=== PATIENT | female | born 1955 | race Caucasian/White ===

== ENCOUNTER 2022-07-06 17:55 | Inpatient (IN) ==
[2022-07-06] MEDS ORDERED: IOPAMIDOL 100 ML BOTTLE IV ONE (17:56)
[2022-07-06] MEDS ORDERED: methylPREDNISolone SOD SUCC 125 MG/2 ML VIAL IV ONE (18:12)
[2022-07-06] MEDS ORDERED: ALBUTEROL SULFATE 2.5 MG/3 ML NEBULIZER NEB ONE (18:12)
--- NOTE | 2022-07-06 18:12 | Emergency Department Note ---
SOB HPI General Chief Complaint: Shortness of Breath/Dyspnea Stated Complaint: Shortness of breath Time Seen by Provider: 07/06/22 17:58 Source: patient Mode of arrival: wheelchair Limitations: no limitations History of Present Illness HPI Narrative: Narrative: The patient presents with 4 days of worsening nonproductive cough, shortness of breath, and a sharp pleuritic chest pain. Patient symptoms began shortly after having her pacemaker adjusted. Patient denies any presyncope. She denies any fever. She denies vomiting or diarrhea. She denies any increased leg swelling. Patient does have a history of COPD and CHF. Related Data Home Medications Medication Instructions Recorded Confirmed magnesium oxide 250 mg PO BID 01/11/16 05/30/22 potassium chloride 20 mEq 20 meq PO BIDCC 01/11/16 05/30/22 tablet,extended release(part/cryst) CPAP machine #1 ea 01/21/19 05/30/22 furosemide 80 mg tablet 80 mg PO QAM AND QHS 01/28/19 05/30/22 hydroxychloroquine 200 mg tablet 400 mg PO QDAY 01/28/19 05/30/22 (Plaquenil) verapamil 120 mg tablet,extended 120 mg PO QDAY 06/01/20 05/30/22 release verapamil 240 mg 24 hr 240 mg PO QDAY 06/01/20 05/30/22 capsule,extended release abatacept 125 mg/mL subcutaneous 125 mg subcut QWEEK 12/28/20 05/30/22 syringe (Orencia) Previous Rx's Medication Instructions Recorded lorazepam 1 mg tablet 1 mg PO BID PRN Anxiety #60 tabs 04/04/22 oxycodone 10 mg tablet 10 mg PO Q6H PRN pain #60 tabs 04/04/22 valacyclovir 500 mg tablet 500 mg PO BID #30 tabs 04/04/22 (Valtrex) amoxicillin 875 mg-potassium 1 tab PO BID #20 tabs 05/30/22 clavulanate 125 mg tablet fluconazole 150 mg tablet 150 mg PO .COMPLEX #2 tabs 05/30/22 (Diflucan) levothyroxine 150 mcg tablet 150 mcg PO QDAY #90 tabs 06/26/22 sertraline 100 mg tablet 100 mg PO QDAY #90 tabs 06/26/22 Allergies Allergy/AdvReac Type Severity Reaction Status Date / Time CARLO Inhibitors Allergy Unknown Unknown Verified 07/06/22 18:01 ciprofloxacin [From Cipro] Allergy Unknown Unknown Verified 07/06/22 18:01 codeine Allergy Unknown Unknown Verified 07/06/22 18:01 nitroglycerin Allergy Unknown Unknown Verified 07/06/22 18:01 Zolpidem Allergy Unknown Unknown Verified 07/06/22 18:01 seasonal allergies AdvReac Intermediate Other Uncoded 05/30/22 13:21 Review of Systems ROS ROS Narrative: Narrative: All systems ED: reviewed and negative except as stated. 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) Renal artery stenosis (Chronic) Thyroid nodule (Chronic ~2009) Fatigue (Chronic) History of adenomatous polyp of colon (Chronic) Asthma (Chronic) Primary idiopathic hypertrophic cardiomyopathy (Chronic) CPAP (continuous positive airway pressure) dependence (Chronic) Palpitations (Chronic) CHF (congestive heart failure) (Chronic) Allergic rhinitis (Chronic) Anxiety (Chronic) Bronchiectasis (Chronic) Gout (Chronic) Hyperlipidemia (Chronic) Insomnia (Chronic) Knee pain (Chronic) Pacemaker (Chronic) Plantar fasciitis (Chronic) Rheumatoid arthritis (Chronic) Sciatica (Chronic) COPD (chronic obstructive pulmonary disease) (Chronic) LINA on CPAP (Chronic) Pulmonary HTN (Chronic) Tobacco use (Chronic) DDD (degenerative disc disease), cervical (Chronic) Lumbar back pain (Chronic) Encounter for long-term (current) use of medications (Chronic) Unspecified vitamin D deficiency (Chronic) DDD (degenerative disc disease), lumbar (Chronic) Anemia, iron deficiency (Chronic) Shoulder impingement syndrome (Chronic) Decreased libido (Chronic) Seasonal allergic rhinitis (Chronic) Post menopausal syndrome (Chronic) Obesity (BMI 30.0-34.9) (Chronic) Nodule of left lung (Acute) Lumbar spondylosis (Acute) Uterine fibroid (Acute) Hypothyroidism (Acute) Bronchitis (Chronic) Renal calculi (Acute) Urge urinary incontinence (Chronic) Medical History Abnormal cytological findings in specimens from other organs, systems and tissues Allergic rhinitis Anemia, iron deficiency Anxiety Asthma Bilateral pulmonary infiltrates on chest x-ray Bronchiectasis Bronchitis Chest pain CHF (congestive heart failure) COPD (chronic obstructive pulmonary disease) Cough CPAP (continuous positive airway pressure) dependence DDD (degenerative disc disease), cervical DDD (degenerative disc disease), lumbar Decreased libido Depression Diverticulosis Dyspnea Easy bruising Encounter for long-term (current) use of medications Fatigue Foot pain Gout Hepatitis C History of adenomatous polyp of colon History of mammogram HPV in female Hyperlipidemia Hypertension Hyperthyroidism Hypothyroidism Insomnia Knee pain Left cervical radiculopathy Lumbar back pain Lumbar radiculopathy Lumbar spondylosis Mitral regurgitation Neck pain Obesity (BMI 30.0-34.9) LINA on CPAP Pacemaker Palpitations Plantar fasciitis Pneumonia Post menopausal syndrome Primary idiopathic hypertrophic cardiomyopathy Renal artery stenosis Renal calculi Rheumatoid arthritis Sciatica Seasonal allergic reaction Seasonal allergic rhinitis Shoulder impingement syndrome SOB (shortness of breath) on exertion Thyroid nodule (~2009) Tobacco use Unspecified vitamin D deficiency Urge urinary incontinence Uterine fibroid Vaginal Pap smear with ASC-US Wheezing Surgical History History of cardiac radiofrequency ablation History of cervical spinal surgery RFTC History of colon resection (~2001) History of foot surgery (~04/28/14) fusion History of pacemaker (~08/1998) replacement 11/15/10 History of permanent cardiac pacemaker placement History of placement of stent in anterior descending branch of left coronary artery (~05/06/05) History of stent insertion of renal artery (~2005) History of surgery 2 c-sections 1976 & 1978 per patient. History of surgery per patient 2 ablations 1997 & 1998. Hx laparoscopic cholecystectomy (~2004) S/P knee surgery 2009 per patient. Family History Mother Colon cancer Grandmother , 47 Malignant tumor of cervix Brother MVA (motor vehicle accident) brother age 28 years and another brother 42 years old in MVA per patient. Social History Smoking Status: Former smoker Alcohol Intake Frequency: does not drink Substance Use: does not use Exam Narrative Narrative: Narrative: General Limitations: no limitations General appearance: Present alert and in no apparent distress Head Head: Present atraumatic and normal inspection Eye Eye: Present normal appearance and EOMI ENT ENT: Present normal oropharynx and mucous membranes moist Neck Neck: Present normal inspection, full ROM and trachea midline; Absent mening ismus Chest Chest: Present normal inspection and symmetric chest wall rise Respiratory Respiratory: Present wheezes (Expiratory wheeze appreciated all lung hays); Absent respiratory distress Cardiovascular Cardiovascular: Present regular rate, normal rhythm and other (Bilateral radial 2+) Adbominal Abdominal: Present soft; Absent distention or tenderness Extremities Extremities: Present normal inspection and full ROM; Absent pedal edema or calf tenderness Back Back: Present full ROM Neurological Neurological: Present alert and oriented X3 Psychiatric Psychiatric: Present normal affect and normal mood Skin Skin: Present warm (WNL) and dry Course Vital Signs Vital signs: Vital Signs Temperature 97.2 F 07/06/22 17:58 Pulse Rate 72 07/06/22 17:58 Respiratory Rate 22 07/06/22 17:58 Blood Pressure 128/70 07/06/22 17:58 Pulse Oximetry (%) 89 L 07/06/22 17:58 Oxygen Delivery Method Room Air 07/06/22 17:58 Temperature 97.2 F 07/06/22 17:58 Pulse Rate 72 07/06/22 17:58 Respiratory Rate 22 07/06/22 17:58 Blood Pressure 128/70 07/06/22 17:58 Pulse Oximetry (%) 89 L 07/06/22 17:58 Oxygen Delivery Method Room Air 07/06/22 17:58 MDM MDM Narrative Medical decision making narrative: Narrative: The patient presents with cough, chest pain, and shortness of breath. Differential includes viral infection, pneumonia, CAD, CHF exacerbation, COPD exacerbation, or less likely, pulmonary embolism. Work-up will be geared towards this differential. Plan to give a dose of Solu-Medrol and albuterol for the wheezing. At change of shift, the patient is handed over to the oncoming physician who will follow up on any remaining studies and then make appropriate disposition. Lab Data Lab results reviewed: Yes I reviewed the patient's lab results. 07/06/22 18:14 Labs: Lab Results 07/06/22 07/06/22 07/06/22 Range/Units 18:14 18:15 18:17 WBC 11.7 H (4.5-11.0) K/mcL RBC 3.63 (3.59-5.38) M/mcL Hgb 9.9 L (11.2-15.7) g/dL Hct 31.1 L (34.1-44.9) % POC Hct 30.0 L (36-48) MCV 85.7 (80.0-100.0) fL MCH 27.3 (26.0-34.0) pg MCHC 31.8 (31.0-36.0) g/dL RDW 15.4 H (11.5-14.5) % Plt Count 169 (140-440) K/mcL MPV 12.3 (8.8-12.5) fL Immature Gran % (Auto) 0.7 H (0.0-0.5) % Neut % (Auto) 82.6 H (38.0-78.0) % Lymph % (Auto) 5.9 L (15.5-49.0) % [place] % (Auto) 10.4 (1.0-12.0) % Eos % (Auto) 0.1 (0.0-7.0) % Baso % (Auto) 0.3 (0.0-2.0) % Lymph # (Auto) 0.69 L (1.50-4.80) K/mcL [place] # (Auto) 1.21 H (0.10-0.90) K/mcL Eos # (Auto) 0.01 (0.00-0.70) K/mcL Baso # (Auto) 0.04 (0.00-0.30) K/mcL Immature Gran # 0.08 H (0.00-0.05) K/mcl Absolute Neutrophils 9.65 H (1.80-8.00) K/mcL POC Sodium 135 (133-145) POC Potassium 3.4 (3.3-5.1) POC Chloride 102 (96-108) POC Total CO2 23.0 (22-30) POC BUN 14 (6-20) POC Creatinine 0.9 (0.6-1.2) POC Glucose 125 H (70-105) POC WB Ioniz Calcium 1.04 L (1.16-1.32) POC Troponin I 0.07 (0.00-0.08) Radiology Data Radiology results reviewed: Yes I reviewed the patient's radiology results. Radiology results narrative: Per my interpretation of the portable chest x-ray, there appears to be fluid overloaded. There is also a concern for a possible infiltrate along the right heart border. EKG Data EKG #1: EKG attestation: Yes I reviewed and interpreted this EKG. and Yes There are no EKG findings of acute coronary syndrome EKG results narrative: Paced rhythm that is probably discordant, rate 72, QTc 517, ND 118 Discharge Plan Patient/Caregiver Discharge Instructions Pt seen by INFORMATION SYSTEMS AUDITOR/PA only: No Clinical Impression: CHF exacerbation Qualifiers: Heart failure type: unspecified Qualified Code(s): I50.9 - Heart failure, unspecified CAP (community acquired pneumonia) Qualifiers: Laterality: right Lung location: middle lobe of lung Qualified Code(s): J18.9 - Pneumonia, unspecified organism Patient Disposition: Still a Patient Follow up with: Asya Corbett ARNP [Primary Care Provider] - Prescriptions: No Action verapamil 120 mg tablet extended release 120 mg PO QDAY Rx Instructions: total 360mg every day . Dr. Navas levothyroxine 150 mcg tablet 150 mcg PO QDAY Qty: 90 1RF sertraline 100 mg tablet 100 mg PO QDAY Qty: 90 1RF hydroxychloroquine [Plaquenil] 200 mg tablet 400 mg PO QDAY verapamil 240 mg capsule,ext rel. pellets 24 hr 240 mg PO QDAY Rx Instructions: in addition to 120mg to equal 360 Dr. Navas [place] [place] Qty: 1 Rx Instructions: As directed Orencia 125 mg/mL syringe 125 mg subcut QWEEK Rx Instructions: Dr. Pérez valacyclovir [Valtrex] 500 mg tablet 500 mg PO BID Qty: 30 1RF oxycodone 10 mg tablet 10 mg PO Q6H PRN (Reason: pain) Qty: 60 0RF lorazepam 1 mg tablet 1 mg PO BID PRN (Reason: Anxiety) Qty: 60 0RF fluconazole [Diflucan] 150 mg tablet 150 mg PO .COMPLEX Qty: 2 0RF Rx Instructions: 150 mg PO now, one in 72 hours; as a single dose amoxicillin-pot clavulanate 875-125 mg tablet 1 tab PO BID Qty: 20 0RF potassium chloride 20 MEQ tablet 20 meq PO BIDCC magnesium oxide 250 MG tablet 250 mg PO BID furosemide 80 mg tablet 80 mg PO QAM AND QHS
[2022-07-06 18:21] LABS: POC Calcium, Ionized 1.04 (1.16-1.32); POC Creatinine 0.9 (0.6-1.2); POC Potassium 3.4 (3.3-5.1)
[2022-07-06 18:41] LABS: Basophils # (Auto) 0.04 K/mcL (0.00-0.30); Basophils % (Auto) 0.3 % (0.0-2.0); Eosinophils # (Auto) 0.01 K/mcL (0.00-0.70); Eosinophils % (Auto) 0.1 % (0.0-7.0); Hematocrit 31.1 % (34.1-44.9); Hemoglobin 9.9 g/dL (11.2-15.7); Lymphocytes # (Auto) 0.69 K/mcL (1.50-4.80); Lymphocytes % (Auto) 5.9 % (15.5-49.0); Mean Cell Volume 85.7 fL (80.0-100.0); Mean Corpuscular HGB Conc 31.8 g/dL (31.0-36.0); Mean Platelet Volume 12.3 fL (8.8-12.5); Monocytes # (Auto) 1.21 K/mcL (0.10-0.90); Monocytes % (Auto) 10.4 % (1.0-12.0); Neutrophils % (Auto) 82.6 % (38.0-78.0); Platelet Count 169 K/mcL (140-440); RBC 3.63 M/mcL (3.59-5.38); Red Cell Distribution Width 15.4 % (11.5-14.5); WBC 11.7 K/mcL (4.5-11.0)
[2022-07-06] MEDS ORDERED: cefTRIAXone 1 GM VIAL IV ONE (18:43)
[2022-07-06] MEDS ORDERED: AZITHROMYCIN 500 MG in DEXTROSE 5% IN WATER 250 ML IV ONE (18:43)
[2022-07-06] MEDS ORDERED: FUROSEMIDE 40 MG/4 ML VIAL IV ONE (18:44)
[2022-07-06 19:04] LABS: ALT/SGPT 21 U/L (<40); AST/SGOT 32 U/L (<32); Alkaline Phosphatase 64 U/L (39-117); Bilirubin,Direct 0.4 mg/dL (<0.3)
--- NOTE | 2022-07-06 20:02 | Cat Scan Report ---
HISTORY: Short of breath, elevated serum d-dimer, chest pain FINDINGS: Following injection of intravenous nonionic contrast the chest was imaged during the pulmonary arterial phase from above the thoracic inlet through the diaphragms. Sagittal, coronal and MIPS images were created. The radiation exposure was limited using dose reduction technology. FINDINGS: The pulmonary arteries are normal with no intraluminal filling defects. Main pulmonary artery is normal in caliber. The heart is mildly enlarged with mildly dilated left ventricle. There are calcified plaques in the coronary arteries. The cardiomegaly is a new finding since a prior CT done on 03/07/22. There are extensive patchy areas of alveolar consolidation throughout both lungs. There is significant thickening of the interlobular septa and there are small bilateral pleural effusions. No pericardial effusion is present. There are a couple reactive lymph nodes in the mediastinum. The thoracic spine has a kyphotic curvature. There is arthritis and degenerative disc disease throughout the entire thoracic spine and lower cervical spine. The patient has a pacemaker with leads in the right atrium and right ventricle. Power pack is in left pectoral region. IMPRESSION: Congestive heart failure with pulmonary edema No evidence of pulmonary emboli Dr. Victoria was called with the report Interpreted and Authenticated by: Fredi Nieto 07/06/22
--- NOTE | 2022-07-06 20:03 | XRay Report ---
History: Short of breath, cough FINDINGS: Portable AP erect image was obtained. There is severe pulmonary edema throughout both lungs. The base opacification is in the central portions. There is blunting of the right costophrenic sulcus due to a small pleural effusion. The heart is mildly enlarged. Dual-chamber pacemaker is well-positioned. The the congestive heart failure and pulmonary edema are new findings since 08/06/21. IMPRESSION: Congestive heart failure with severe pulmonary edema Interpreted and Authenticated by: Fredi Nieto 07/06/22
--- NOTE | 2022-07-06 20:38 | Emergency Department Note ---
ED Note Addendum Note Addendum: I received signout of this patient from my colleague at 1900. In brief this was a 67-year-old female who had shortness of breath with a history of CHF and COPD. She had significant wheezing when she arrived and was given albuterol and Solu- Medrol. Her pulse ox was 89% on arrival. Chest x-ray was reviewed and was suspicious for possible pneumonia so the patient was started on IV antibiotics. A D-dimer was obtained which was positive so a VQ scan was ordered that VQ scan eventually showed no pulmonary embolus. Patient's pulmonary angiogram showed congestive heart failure with pulmonary edema but no pulmonary embolus. D-dimer was 1.74. BNP was 2084. Lactic acid level was 0.9. She did not have SIRS criteria. Her troponin was 0.07 which was normal. Interestingly her hemoglobin was 9.9 compared to 12.4 just 5 months ago. When she originally arrived her pulse ox was 89%. She received a nebulized treatment and Solu-Medrol for her wheezing and her pulse ox was 93% when I went in the room. Though she was on 6 L by mask. I took her off the oxygen and her pulse ox dropped to 87% on room air. Her COVID test was negative as was her influenza A & B. I consulted Dr. Allen, our hospitalist for admission. 2034: He agreed to come down to the emergency department to evaluate her for admission. She was subsequently admitted to the hospital for further care.
[2022-07-06] MEDS ORDERED: ACETAMINOPHEN 325 MG TABLET PO ONE (20:49)
--- NOTE | 2022-07-06 20:59 | Internal Med History&Physical ---
HPI History of Present Illness Patient information: Note initiated : 07/06/22 at 8:49 pm Service Date, if different from initiated Date: [] Patient: Bryanna Malone a 67 y/o F admitted on for Shortness of breath. Chief Complaint: [] History of present illness: Ms. Malone is a 67 year old F Presents to ED with shortness of breath and cough. Patient states she is felt weak for about a week. She she was up in [place] with her who was getti ng heart surgery about a week ago. She also around that time had a gradient change for pacemaker. Shortly thereafter she started having problems with some increased shortness of breath. She developed a cough with mildly productive sputum. She also had fevers about 3 days ago. She has felt wheezy at times. She had increased lower extremity edema but she said it started to improve today. She is at a 8 pound weight gain as well. She had a headache. She has some chronic chest pains sharp in the center and right side which has been there for years, no change. In the ED she was worked up and found to have CHF. She was given Lasix. She was also given Solu-Medrol and nebulizers as there was initial concern for COPD flare. She says she did feel improvement with the nebulizers. proBNP 1999. EKG with VTroponin was negative. Ventricular paced. She had an echocardiogram done May 21 up in [place] which showed good EF at 61%. She also had moderate to severe mitral regurgitation. Patient was hypoxic on room air and required oxygen. Review of Systems: Pertinent positives as above. Denies headachechills/nausea/vomiting/r abdominal pain/diarrhea. Remaining 10 point review of system reviewed negative PHYSICAL EXAM General: Alert, Awake, No acute Distress, obese Eyes/N/T: EOMI, no scleral icterus, PERRL, MM Head/Neck: neck supple, full ROM, normocephalic atraumatic, JVD CV: RRR, 2/6SM, normal s1/s2 Pulm: rales/rhonchi b/l, no wheezing no respiratory distress Abd: soft, nontender, +BS x4 Ext: no clubbing/cyanosis, trace b/l LE , nontender Neuro: Alert, no focal deficits, moves all extremities, CN 2-12 grossly intact, sensations intact b/l upper/lower Psychiatric: Skin: warm/dry, normal color PFSH PFSH All Active Problems (Updated 07/06/22 @ 18:46 by Ronak Amor MD) CHF exacerbation (Acute) CAP (community acquired pneumonia) (Acute) Hypertension (Chronic) Mitral regurgitation (Chronic) Diverticulosis (Chronic) Depression (Chronic) 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) Renal artery stenosis (Chronic) Thyroid nodule (Chronic ~2010) Fatigue (Chronic) History of adenomatous polyp of colon (Chronic) Asthma (Chronic) Primary idiopathic hypertrophic cardiomyopathy (Chronic) CPAP (continuous positive airway pressure) dependence (Chronic) Palpitations (Chronic) CHF (congestive heart failure) (Chronic) Allergic rhinitis (Chronic) Anxiety (Chronic) Bronchiectasis (Chronic) Gout (Chronic) Hyperlipidemia (Chronic) Insomnia (Chronic) Knee pain (Chronic) Pacemaker (Chronic) Plantar fasciitis (Chronic) Rheumatoid arthritis (Chronic) Sciatica (Chronic) COPD (chronic obstructive pulmonary disease) (Chronic) LINA on CPAP (Chronic) Pulmonary HTN (Chronic) Tobacco use (Chronic) DDD (degenerative disc disease), cervical (Chronic) Lumbar back pain (Chronic) Encounter for long-term (current) use of medications (Chronic) Unspecified vitamin D deficiency (Chronic) DDD (degenerative disc disease), lumbar (Chronic) Anemia, iron deficiency (Chronic) Shoulder impingement syndrome (Chronic) Decreased libido (Chronic) Seasonal allergic rhinitis (Chronic) Post menopausal syndrome (Chronic) Obesity (BMI 30.0-34.9) (Chronic) Nodule of left lung (Acute) Lumbar spondylosis (Acute) Uterine fibroid (Acute) Hypothyroidism (Acute) Bronchitis (Chronic) Renal calculi (Acute) Urge urinary incontinence (Chronic) Medical History Abnormal cytological findings in specimens from other organs, systems and tissues Allergic rhinitis Anemia, iron deficiency Anxiety Asthma Bilateral pulmonary infiltrates on chest x-ray Bronchiectasis Bronchitis Chest pain CHF (congestive heart failure) COPD (chronic obstructive pulmonary disease) Cough CPAP (continuous positive airway pressure) dependence DDD (degenerative disc disease), cervical DDD (degenerative disc disease), lumbar Decreased libido Depression Diverticulosis Dyspnea Easy bruising Encounter for long-term (current) use of medications Fatigue Foot pain Gout Hepatitis C History of adenomatous polyp of colon History of mammogram HPV in female Hyperlipidemia Hypertension Hyperthyroidism Hypothyroidism Insomnia Knee pain Left cervical radiculopathy Lumbar back pain Lumbar radiculopathy Lumbar spondylosis Mitral regurgitation Neck pain Obesity (BMI 30.0-34.9) LINA on CPAP Pacemaker Palpitations Plantar fasciitis Pneumonia Post menopausal syndrome Primary idiopathic hypertrophic cardiomyopathy Renal artery stenosis Renal calculi Rheumatoid arthritis Sciatica Seasonal allergic reaction Seasonal allergic rhinitis Shoulder impingement syndrome SOB (shortness of breath) on exertion Thyroid nodule (~2009) Tobacco use Unspecified vitamin D deficiency Urge urinary incontinence Uterine fibroid Vaginal Pap smear with ASC-US Wheezing Surgical History History of cardiac radiofrequency ablation History of cervical spinal surgery RFTC History of colon resection (~2001) History of foot surgery (~04/28/14) fusion History of pacemaker (~08/1998) replacement 11/15/10 History of permanent cardiac pacemaker placement History of placement of stent in anterior descending branch of left coronary artery (~05/06/05) History of stent insertion of renal artery (~2005) History of surgery 2 c-sections 1976 & 1978 per patient. History of surgery per patient 2 ablations 1997 & 1998. Hx laparoscopic cholecystectomy (~2004) S/P knee surgery 2009 per patient. Family History Mother Colon cancer Grandmother , 47 Malignant tumor of cervix Brother MVA (motor vehicle accident) brother age 28 years and another brother 42 years old in MVA per patient. Social History household members: spouse marital status: occupational status: disabled other: Son-18 killed in MVA, 04/29/12, Remarried 2013 to Rubens smoking status: Former smoker quit date: 01/27/19 alcohol intake frequency: does not drink substance use type: does not use MEDS/ALLERGIES Home Medications and Allergies Home Medications Medication Instructions Recorded Confirmed Type magnesium oxide 250 mg PO BID 01/11/16 05/30/22 History potassium chloride 20 mEq 20 meq PO BIDCC 01/11/16 05/30/22 History tablet,extended release(part/cryst) CPAP machine #1 ea 01/21/19 05/30/22 History furosemide 80 mg tablet 80 mg PO QAM AND QHS 01/28/19 05/30/22 History hydroxychloroquine 200 mg tablet 400 mg PO QDAY 01/28/19 05/30/22 History (Plaquenil) verapamil 120 mg tablet,extended 120 mg PO QDAY 06/01/20 05/30/22 History release verapamil 240 mg 24 hr 240 mg PO QDAY 06/01/20 05/30/22 History capsule,extended release abatacept 125 mg/mL subcutaneous 125 mg subcut QWEEK 12/28/20 05/30/22 History syringe (Orencia) lorazepam 1 mg tablet 1 mg PO BID PRN Anxiety #60 tabs 04/04/22 05/30/22 Rx oxycodone 10 mg tablet 10 mg PO Q6H PRN pain #60 tabs 04/04/22 05/30/22 Rx valacyclovir 500 mg tablet 500 mg PO BID #30 tabs 04/04/22 05/30/22 Rx (Valtrex) amoxicillin 875 mg-potassium 1 tab PO BID #20 tabs 05/30/22 05/30/22 Rx clavulanate 125 mg tablet fluconazole 150 mg tablet 150 mg PO .COMPLEX #2 tabs 05/30/22 05/30/22 Rx (Diflucan) levothyroxine 150 mcg tablet 150 mcg PO QDAY #90 tabs 06/26/22 Rx sertraline 100 mg tablet 100 mg PO QDAY #90 tabs 06/26/22 Rx Allergies Allergy/AdvReac Type Severity Reaction Status Date / Time CARLO Inhibitors Allergy Unknown Unknown Verified 07/06/22 18:01 ciprofloxacin [From Cipro] Allergy Unknown Unknown Verified 07/06/22 18:01 codeine Allergy Unknown Unknown Verified 07/06/22 18:01 nitroglycerin Allergy Unknown Unknown Verified 07/06/22 18:01 Zolpidem Allergy Unknown Unknown Verified 07/06/22 18:01 seasonal allergies AdvReac Intermediate Other Uncoded 05/30/22 13:21 EXAM Constitutional Vitals: Temp Pulse Resp BP Pulse Ox O2 Del Method 97.2 F 72 20 105/90 93 Room Air 07/06/22 17:58 07/06/22 20:32 07/06/22 20:32 07/06/22 20:32 07/06/22 20:32 07/06/22 17:58 DATA Data Completed and Pending Labs: Labs from last 24 hours 07/06/22 07/06/22 07/06/22 18:54 18:17 18:15 WBC RBC Hgb Hct POC Hct 30.0 L MCV MCH MCHC RDW Plt Count MPV Immature Gran % (Auto) Neut % (Auto) Lymph % (Auto) [place] % (Auto) Eos % (Auto) Baso % (Auto) Lymph # (Auto) [place] # (Auto) Eos # (Auto) Baso # (Auto) Immature Gran # Absolute Neutrophils D-Dimer POC VBG pH 7.47 H POC VBG pCO2 at Temp 29.1 L POC VBG pO2 45 H POC VBG HCO3 21.2 L POC VBG Total CO2 22.0 L POC Venous O2 Sat 85.0 H POC VBG Base Excess -2.0 VBG Lactic Acid 0.9 POC Sodium 135 POC Potassium 3.4 POC Chloride 102 POC Total CO2 23.0 POC BUN 14 POC Creatinine 0.9 POC Glucose 125 H POC WB Ioniz Calcium 1.04 L Total Bilirubin Direct Bilirubin AST ALT Alkaline Phosphatase NT-Pro-B Natriuret Pep Total Protein Albumin Globulin Procalcitonin TSH POC Troponin I 0.07 07/06/22 07/06/22 07/06/22 18:14 18:14 18:14 WBC RBC Hgb Hct POC Hct MCV MCH MCHC RDW Plt Count MPV Immature Gran % (Auto) Neut % (Auto) Lymph % (Auto) [place] % (Auto) Eos % (Auto) Baso % (Auto) Lymph # (Auto) [place] # (Auto) Eos # (Auto) Baso # (Auto) Immature Gran # Absolute Neutrophils D-Dimer POC VBG pH POC VBG pCO2 at Temp POC VBG pO2 POC VBG HCO3 POC VBG Total CO2 POC Venous O2 Sat POC VBG Base Excess VBG Lactic Acid POC Sodium POC Potassium POC Chloride POC Total CO2 POC BUN POC Creatinine POC Glucose POC WB Ioniz Calcium Total Bilirubin 1.0 Direct Bilirubin 0.4 H AST 32 H ALT 21 Alkaline Phosphatase 64 NT-Pro-B Natriuret Pep 2084.0 H Total Protein 7.0 Albumin 4.0 Globulin 3.0 Procalcitonin Pending TSH Pending POC Troponin I 07/06/22 07/06/22 18:14 18:14 WBC 11.7 H RBC 3.63 Hgb 9.9 L Hct 31.1 L POC Hct MCV 85.7 MCH 27.3 MCHC 31.8 RDW 15.4 H Plt Count 169 MPV 12.3 Immature Gran % (Auto) 0.7 H Neut % (Auto) 82.6 H Lymph % (Auto) 5.9 L [place] % (Auto) 10.4 Eos % (Auto) 0.1 Baso % (Auto) 0.3 Lymph # (Auto) 0.69 L [place] # (Auto) 1.21 H Eos # (Auto) 0.01 Baso # (Auto) 0.04 Immature Gran # 0.08 H Absolute Neutrophils 9.65 H D-Dimer 1.74 H POC VBG pH POC VBG pCO2 at Temp POC VBG pO2 POC VBG HCO3 POC VBG Total CO2 POC Venous O2 Sat POC VBG Base Excess VBG Lactic Acid POC Sodium POC Potassium POC Chloride POC Total CO2 POC BUN POC Creatinine POC Glucose POC WB Ioniz Calcium Total Bilirubin Direct Bilirubin AST ALT Alkaline Phosphatase NT-Pro-B Natriuret Pep Total Protein Albumin Globulin Procalcitonin TSH POC Troponin I A/P Narrative A/P Narrative: A: *Acute on chronic diastolic CHF w/pulmonary edema: -last echo 05/21/2022 *mod-Severe MR: *Acute hypoxic respiratory failure: 2/2 above *?COPD(not on home O2): with possible viral illness *possible viral illness: triggering above *LINA w/cpap: *HTN: *Obesity: BMI 34 *Chronic back pain: *Depression/anxiety: *Rheumatoid arthritis: *Hypothyroidism: * P: -iv lasix -Monitor UOP/renal function/fluid balance -montor renal fxn -Monitor electrolytes trend and replace -Check TSH -check pct/rvp - -Continue home CPAP -nebs, IS/Acapella -Home medication reconciliation -PT/OT -f/u with cardiology -ppx: Lovenox Time Spent With Patient Time: Total time spent is greater than 50% in coordination of care (as documented) at patient's floor/unit and/or counseling patient: Initial: Total time with patient: 75 - 90 minutes
[2022-07-06 21:13] LABS: Thyroid Stimulating Hormone 0.31 uIU/mL (0.27-5.01)
[2022-07-06] MEDS ORDERED: MAGNESIUM SULFATE 2 GM/50 ML BAG IV PRN (22:02)
[2022-07-06] MEDS ORDERED: FUROSEMIDE 20 MG/2 ML VIAL IV ONE (22:02)
[2022-07-06] MEDS ORDERED: ONDANSETRON 4 MG/2 ML VIAL IV PRN (22:02)
[2022-07-06] MEDS ORDERED: SENNOSIDES 1 TABLET PO PRN (22:02)
[2022-07-06] MEDS ORDERED: ACETAMINOPHEN 325 MG TABLET PO PRN (22:02)
[2022-07-06] MEDS ORDERED: POLYETHYLENE GLYCOL 3350 17 GM PACKET PO PRN (22:02)
[2022-07-06] MEDS ORDERED: POTASSIUM CHLORIDE 40 MEQ in DEXTROSE 5% IN WATER 500 ML IV PRN (22:02)
[2022-07-06] MEDS ORDERED: POTASSIUM CHLORIDE 20 MEQ TABLET PO PRN ×2 (22:02)
[2022-07-06] MEDS ORDERED: REMDESIVIR 200 MG in 0.9 % SODIUM CHLORIDE 250 ML IV ONE (22:45)
[2022-07-06] MEDS: 0.9 % SODIUM CHLORIDE 10 ML SYRINGE IV SCH (23:05)
[2022-07-06] MEDS ORDERED: DEXAMETHASONE 4 MG TABLET PO ONE (23:19)
[2022-07-06] MEDS: DEXAMETHASONE 4 MG TABLET PO SCH (23:44)
[2022-07-07] MEDS: 0.9 % SODIUM CHLORIDE 10 ML SYRINGE IV SCH ×3 (05:07→21:30)
[2022-07-07 06:26] LABS: Basophils # (Auto) 0.01 K/mcL (0.00-0.30); Basophils % (Auto) 0.1 % (0.0-2.0); Eosinophils # (Auto) 0 K/mcL (0.00-0.70); Eosinophils % (Auto) 0 % (0.0-7.0); Hematocrit 32.4 % (34.1-44.9); Hemoglobin 10.2 g/dL (11.2-15.7); Lymphocytes # (Auto) 0.42 K/mcL (1.50-4.80); Mean Cell Volume 86.6 fL (80.0-100.0); Mean Corpuscular HGB Conc 31.5 g/dL (31.0-36.0); Mean Platelet Volume 11.9 fL (8.8-12.5); Monocytes # (Auto) 0.36 K/mcL (0.10-0.90); Monocytes % (Auto) 4.3 % (1.0-12.0); Neutrophils % (Auto) 89.9 % (38.0-78.0); Platelet Count 150 K/mcL (140-440); RBC 3.74 M/mcL (3.59-5.38); Red Cell Distribution Width 15.4 % (11.5-14.5); WBC 8.4 K/mcL (4.5-11.0)
--- NOTE | 2022-07-07 07:49 | Internal Med Progress Note ---
SUBJECTIVE Subjective Patient information: Note initiated : 07/07/22 at 7:44 am Service Date, if different from initiated Date: [] Patient: Bryanna Malone a 67 y/o F admitted on 07/06/22 for Shortness of breath. Chief Complaint: [] Interval history: History of present illness: Ms. Malone is a 67 year old F Presents to ED with shortness of breath and cough. Patient states she is felt weak for about a week. She she was up in [place] with her who was getting heart surgery about a week ago. She also around that time had a gradient change for pacemaker. Shortly thereafter she started having problems with some increased shortness of breath. She developed a cough with mildly productive sputum. She also had fevers about 3 days ago. She has felt wheezy at times. She had increased lower extremity edema but she said it started to improve today. She is at a 8 pound weight gain as well. She had a headache. She has some chronic chest pains sharp in the center and right side which has been there for years, no change. In the ED she was worked up and found to have CHF. She was given Lasix. She was also given Solu-Medrol and nebulizers as there was initial concern for COPD flare. She says she did feel improvement with the nebulizers. proBNP 1999. EKG with VTroponin was negative. Ventricular paced. She had an echocardiogram done May 21 up in [place] which showed good EF at 61%. She also had moderate to severe mitral regurgitation. Patient was hypoxic on room air and required oxygen. 07/07 patient feeling little better today. Shortness of breath present but better, coughing improving. On room air while awake. Have not ambulated on room air yet. COVID-positive possibly contributing to the presentation. CRP elevated 11. Patient started on treatment yesterday.Leukocytosis resolved Review of Systems: Denies headachechills/nausea/vomiting/r abdominal pain/diarrhea.as above PHYSICAL EXAM General: Alert, Awake, No acute Distress, obese Eyes/N/T: EOMI, no scleral icterus, Head/Neck: neck supple, full ROM, CV: RRR, 2/6SM, Pulm: rales/rhonchi b/l much improved now minimally at bases, no wheezing no respiratory distress Abd: soft, nontender, +BS x4 Ext: no clubbing/cyanosis, trace b/l LE , nontender Neuro: Alert, no focal deficits, moves all extremities,sensations intact b/l upper/lower Psychiatric: Skin: warm/dry, normal color Constitutional Vitals: Vital Signs Temp Pulse Resp BP Pulse Ox O2 Del Method O2 Flow Rate 96.9 F L 63 21 141/67 97 Room Air 4 07/07/22 04:01 07/07/22 05:58 07/07/22 05:58 07/07/22 05:58 07/07/22 05:58 07/07/22 05:58 07/07/22 05:54 Period Temp Pulse Resp BP Sys/Gunderson Pulse Ox O2 Del Method O2 Flow Rate Last 24 Hr 96.4 F-98.6 F 59-72 18-30 104-141/55-90 89-99 CPAP-Room Air 3-6 Intake and Output 07/06/22 07/07/22 07/07/22 19:59 03:59 11:59 Intake Total 980 Output Total 300 350 Balance 680 -350 Weight 83.915 kg 89.947 kg Intake & Output: Intake & Output 07/06/22 07/07/22 07/07/22 19:59 03:59 11:59 Intake Total 980 Output Total 300 350 Balance 680 -350 Weight 83.915 kg 89.947 kg Intake: IV 500 Zithromax 500 mg In Dextrose 5% 250 in Water 250 ml @ 250 mls/hr IV ONCE ONE Rx#:[id number] Veklury 200 mg In Sodium 250 Chloride 0.9% 250 ml @ 500 mls/ hr IV ONCE ONE Rx#:[id number] Oral 480 Output: Void Amount 300 350 Other: Meal Nourishment/Supplement Percent of Meal Consumed 100% Nourishment/Supplement name [place]ce Urine Appearance Clear Clear Urine Color Dark Yellow Yellow Stool Size Moderate Stool Color Brown Stool Consistency Normal for Patient Soft OBJ DATA Labs 07/07/22 05:35 Labs: Abnormal Lab Results 07/07/22 07/06/22 07/06/22 05:35 18:54 18:17 WBC Hgb 10.2 L Hct 32.4 L POC Hct 30.0 L RDW 15.4 H Immature Gran % (Auto) 0.7 H Neut % (Auto) 89.9 H Lymph % (Auto) 5.0 L Lymph # (Auto) 0.42 L [place] # (Auto) Immature Gran # 0.06 H Absolute Neutrophils D-Dimer POC VBG pH 7.47 H POC VBG pCO2 at Temp 29.1 L POC VBG pO2 45 H POC VBG HCO3 21.2 L POC VBG Total CO2 22.0 L POC Venous O2 Sat 85.0 H POC Glucose 125 H POC WB Ioniz Calcium 1.04 L Direct Bilirubin AST NT-Pro-B Natriuret Pep 07/06/22 07/06/22 07/06/22 18:14 18:14 18:14 WBC 11.7 H Hgb 9.9 L Hct 31.1 L POC Hct RDW 15.4 H Immature Gran % (Auto) 0.7 H Neut % (Auto) 82.6 H Lymph % (Auto) 5.9 L Lymph # (Auto) 0.69 L [place] # (Auto) 1.21 H Immature Gran # 0.08 H Absolute Neutrophils 9.65 H D-Dimer 1.74 H POC VBG pH POC VBG pCO2 at Temp POC VBG pO2 POC VBG HCO3 POC VBG Total CO2 POC Venous O2 Sat POC Glucose POC WB Ioniz Calcium Direct Bilirubin 0.4 H AST 32 H NT-Pro-B Natriuret Pep 2084.0 H Meds: Medications Acetaminophen (Acetaminophen 325 Mg Tablet) 650 mg PO Q6HP PRN; Protocol PRN Reason: Per Pain Protocol/Fever > 101 Albuterol/Ipratropium (Ipratropium/Albuterol 3 Ml Ampul.Neb) 3 ml NEB Q4HP PRN PRN Reason: Shortness Of Breath Budesonide (Budesonide 0.5 Mg/2 Ml Ampul.Neb) 0.5 mg NEB Q12 PENDING SALE TO [facility] Dexamethasone (Dexamethasone 4 Mg Tablet) 6 mg PO DAILY PENDING SALE TO [facility] Last Admin: 07/06/22 23:44 Dose: 6 mg Docusate Sodium (Docusate Sodium 100 Mg Capsule) 100 mg PO BID PENDING SALE TO [facility] Enoxaparin Sodium (Enoxaparin 40 Mg/0.4 Ml Syringe) 40 mg SQ DAILY PENDING SALE TO [facility] Furosemide (Furosemide 40 Mg/4 Ml Vial) 40 mg IV Q8 PENDING SALE TO [facility] Potassium Chloride 40 meq/ (Dextrose) 520 mls @ 130 mls/hr IV UD PRN PRN Reason: Potassium < 3 Magnesium Sulfate (Magnesium Sulfate) 2 gm in 50 mls @ 50 mls/hr IV UD PRN PRN Reason: Magnesium </= 1.6 REMDESIVIR 100 mg/ Sodium (Chloride) 250 mls @ 500 mls/hr IV Q24H PENDING SALE TO [facility] Stop: 07/10/22 15:29 Ondansetron HCl (Ondansetron 4 Mg/2 Ml Vial) 4 mg IV Q4HP PRN PRN Reason: Nausea And Vomiting Polyethylene Glycol (Polyethylene Glycol 3350 17 Gm Packet) 17 gm PO DAILYP PRN PRN Reason: Constipation Potassium Chloride (Potassium Chloride 20 Meq Tablet) 40 meq PO UD PRN PRN Reason: Potssium is 3-3.5 Last Admin: 07/06/22 23:05 Dose: 40 meq Potassium Chloride (Potassium Chloride 20 Meq Tablet) 40 meq PO UD PRN PRN Reason: Potassium < 3 Senna (Sennosides 1 Tablet) 2 tab PO DAILYP PRN PRN Reason: Constipation Sodium Chloride (0.9 % Sodium Chloride 10 Ml Syringe) 10 ml IV Q8 PENDING SALE TO [facility] Last Admin: 07/07/22 05:07 Dose: 10 ml A/P Narrative A/P Narrative: A: *Acute on chronic diastolic CHF w/pulmonary edema: -last echo 05/21/2022 *mod-Severe MR: *Covid (+),?pna: -leukocytosis resolve. rvp neg *Acute hypoxic respiratory failure: 2/2 above -now on room air while at rest, have not amulated on room air *AECOPD(not on home O2): 2/2 covid *LINA w/cpap: *HTN: *Obesity: BMI 34 *Chronic back pain: *Depression/anxiety: *Rheumatoid arthritis: *Hypothyroidism: tsh wnl * P: -iv lasix tid -Monitor UOP/renal function/fluid balance -montor renal fxn -Monitor electrolytes trend and replace -Rem/Dex -Check inflammatory markers -Continue home CPAP -nebs, IS/Acapella -Home medication reconciliation -PT/OT -f/u with cardiology -ppx: Lovenox Time Spent With Patient Time: Total time spent is greater than 50% in coordination of care (as documented) at patient's floor/unit and/or counseling patient: Subsequent: Total time with patient: 50 - 65 Minutes QUALITY VTE Deep Vein Thrombosis/Pulmonary Embolism Present on Admission: No
[2022-07-07 08:10] LABS: ALT/SGPT 19 U/L (<40); AST/SGOT 27 U/L (<32); Albumin 3.8 gm/dL (3.2-5.2); Albumin/Globulin Ratio 1.2 (1.0-2.3); Alkaline Phosphatase 64 U/L (39-117); Bilirubin,Direct < 0.2 mg/dL (0-0.3); Bilirubin,Total 0.5 mg/dL (0.1-1.0); Blood Urea Nitrogen 11 mg/dL (8-23); Calcium 9.3 mg/dL (8.6-10.4); Carbon Dioxide 24 mmol/L (22-30); Chloride 105 mmol/L (96-108); Globulin 3.2 gm/dL (2.2-3.7); Glomerular Filtration Rate 90; Glucose 155 mg/dL (70-105); Lactate Dehydrogenase 401 U/L (135-225); Phosphorous 2.9 mg/dL (2.5-4.5); Triglycerides 73 mg/dL (<150); Uric Acid 8.5 mg/dL (2.5-8.0)
[2022-07-07] MEDS: ENOXAPARIN 40 MG/0.4 ML SYRINGE SQ SCH (08:38)
[2022-07-07] MEDS: DEXAMETHASONE 4 MG TABLET PO SCH (08:39)
[2022-07-07] MEDS: DOCUSATE SODIUM 100 MG CAPSULE PO SCH ×2 (08:39→19:13)
[2022-07-07] MEDS: FUROSEMIDE 40 MG/4 ML VIAL IV SCH ×3 (08:40→21:30)
[2022-07-07] MEDS: BUDESONIDE 0.5 MG/2 ML AMPUL.NEB NEB SCH ×2 (09:03→20:08)
[2022-07-07] MEDS: IPRATROPIUM/ALBUTEROL 3 ML AMPUL.NEB NEB PRN (09:03)
--- NOTE | 2022-07-07 10:50 | EKG ---
[facility] Test Date: 2022-07-06 Pat Name: Bryanna Malone Department: ED Room: Gender: Female Legal Arbitrator: ERNA : 1955 Requested By: Ronak Amor Order Number: [id number] Reading MD: Dao Cedeno Measurements Intervals [place] Rate: 72 P: 91 ME: 118 QRS: -55 QRSD: 181 T: 125 QT: 472 QTc: 517 Interpretive Statements Atrial-sensed ventricular-paced rhythm No further analysis attempted due to paced rhythm Electronically Signed On 07-07-2022 10:49:53 PDT by Dao Cedeno /store/M0/[id number]
--- NOTE | 2022-07-07 10:53 | Discharge Summary ---
Discharge Provider Provider IMPORTANT FOLLOW-UP INFORMATION FOR PCP: Patient information: Note initiated : 07/07/22 at 10:51 am Service Date, if different from initiated Date: [] Patient: Bryanna Malone a 67 y/o F admitted on 07/06/22 for Shortness of breath. Chief Complaint: [] Date of admission: 07/06/22 22:00 Discharge date: 07/08/22 Primary care physician: HITESH Del Cid Consults: 07/06/22 Consult to Physician [CONS] Stat Comment: E2 Admit. CHF with Pulm edema and P. ox 86% Consulting Provider: Lam Allen Reason For Exam: Physician to Consult COURSE Hospital Course Hospital course: History of present illness: Ms. Malone is a 67 year old F Presents to ED with shortness of breath and cough. Patient states she is felt weak for about a week. She she was up in [place] with her who was getting heart surgery about a week ago. She also around that time had a gradient change for pacemaker. Shortly thereafter she started having problems with some increased shortness of breath. She developed a cough with mildly productive sputum. She also had fevers about 3 days ago. She has felt wheezy at times. She had increased lower extremity edema but she said it started to improve today. She is at a 8 pound weight gain as well. She had a headache. She has some chronic chest pains sharp in the center and right side which has been there for years, no change. In the ED she was worked up and found to have CHF. She was given Lasix. She was also given Solu-Medrol and nebulizers as there was initial concern for COPD flare. She says she did feel improvement with the nebulizers. proBNP 1999. EKG with VTroponin was negative. Ventricular paced. She had an echocardiogram done May 21 up in [place] which showed good EF at 61%. She also had moderate to severe mitral regurgitation. Patient was hypoxic on room air and required oxygen. 07/07 patient feeling little better today. Shortness of breath present but better, coughing improving. On room air while awake. Have not ambulated on room air yet. COVID-positive possibly contributing to the presentation. CRP elevated 11. Patient started on treatment yesterday.Leukocytosis resolved 07/08 Continues to feel better. Ambulating around the room on room air. Decent urine output yesterday. CRP slightly improved. Patient hoping to discharge today. A: *Acute on chronic diastolic CHF w/pulmonary edema: -last echo 05/21/2022 *mod-Severe MR: *Covid (+),?pna: *Acute hypoxic respiratory failure: 2/2 above *AECOPD(not on home O2): 2/2 covid *LINA w/cpap: *HTN: *Obesity: BMI 34 *Chronic back pain: *Depression/anxiety: *Rheumatoid arthritis: *Hypothyroidism: tsh wnl Discharge diagnosis: Acute on chronic diastolic heart failure with pulmonary edema acute hypoxic Secondary discharge diagnosis: Acute hypoxic respite failure moderate to severe MR COVID infection with possible pneumonia COPD obstructive sleep apnea pretension obesity chronic pain depression anxiety rheumatoid arthritis hypothyroidism Time Spent with Patient Time attestation: Total time spent providing and/or coordinating discharge services: Time spent: Greater than 30 minutes EXAM Constitutional Vitals: Temp Pulse Resp BP Pulse Ox O2 Del Method O2 Flow Rate 97.4 F 73 18 122/77 91 Room Air 0.5 07/07/22 08:00 07/07/22 10:00 07/07/22 10:00 07/07/22 10:00 07/07/22 10:00 07/07/22 10:00 07/07/22 09:00 Discharge Data Data Completed and Pending Labs on day of discharge: Labs from last 24 hours 07/07/22 07/07/22 07/07/22 05:35 05:35 05:35 WBC 8.4 RBC 3.74 Hgb 10.2 L Hct 32.4 L POC Hct MCV 86.6 MCH 27.3 MCHC 31.5 RDW 15.4 H Plt Count 150 MPV 11.9 Immature Gran % (Auto) 0.7 H Neut % (Auto) 89.9 H Lymph % (Auto) 5.0 L [place] % (Auto) 4.3 Eos % (Auto) 0 Baso % (Auto) 0.1 Lymph # (Auto) 0.42 L [place] # (Auto) 0.36 Eos # (Auto) 0 Baso # (Auto) 0.01 Immature Gran # 0.06 H Absolute Neutrophils 7.58 D-Dimer POC VBG pH POC VBG pCO2 at Temp POC VBG pO2 POC VBG HCO3 POC VBG Total CO2 POC Venous O2 Sat POC VBG Base Excess VBG Lactic Acid POC Sodium Sodium 141 POC Potassium Potassium 3.8 POC Chloride Chloride 105 Carbon Dioxide 24 POC Total CO2 Anion Gap 12.0 POC BUN BUN 11 Creatinine 0.7 POC Creatinine GFR Calculation 90 Glucose 155 H POC Glucose Uric Acid 8.5 H Calcium 9.3 POC WB Ioniz Calcium Phosphorus 2.9 Magnesium 2.3 Total Bilirubin 0.5 Direct Bilirubin < 0.2 GGT 26 AST 27 ALT 19 Alkaline Phosphatase 64 Lactate Dehydrogenase 401 H C-Reactive Protein 10.80 H NT-Pro-B Natriuret Pep Total Protein 7.0 Albumin 3.8 Globulin 3.2 Albumin/Globulin Ratio 1.2 Triglycerides 73 Procalcitonin TSH POC Troponin I 07/06/22 07/06/22 07/06/22 18:54 18:17 18:15 WBC RBC Hgb Hct POC Hct 30.0 L MCV MCH MCHC RDW Plt Count MPV Immature Gran % (Auto) Neut % (Auto) Lymph % (Auto) [place] % (Auto) Eos % (Auto) Baso % (Auto) Lymph # (Auto) [place] # (Auto) Eos # (Auto) Baso # (Auto) Immature Gran # Absolute Neutrophils D-Dimer POC VBG pH 7.47 H POC VBG pCO2 at Temp 29.1 L POC VBG pO2 45 H POC VBG HCO3 21.2 L POC VBG Total CO2 22.0 L POC Venous O2 Sat 85.0 H POC VBG Base Excess -2.0 VBG Lactic Acid 0.9 POC Sodium 135 Sodium POC Potassium 3.4 Potassium POC Chloride 102 Chloride Carbon Dioxide POC Total CO2 23.0 Anion Gap POC BUN 14 BUN Creatinine POC Creatinine 0.9 GFR Calculation Glucose POC Glucose 125 H Uric Acid Calcium POC WB Ioniz Calcium 1.04 L Phosphorus Magnesium Total Bilirubin Direct Bilirubin GGT AST ALT Alkaline Phosphatase Lactate Dehydrogenase C-Reactive Protein NT-Pro-B Natriuret Pep Total Protein Albumin Globulin Albumin/Globulin Ratio Triglycerides Procalcitonin TSH POC Troponin I 0.07 07/06/22 07/06/22 07/06/22 18:14 18:14 18:14 WBC RBC Hgb Hct POC Hct MCV MCH MCHC RDW Plt Count MPV Immature Gran % (Auto) Neut % (Auto) Lymph % (Auto) [place] % (Auto) Eos % (Auto) Baso % (Auto) Lymph # (Auto) [place] # (Auto) Eos # (Auto) Baso # (Auto) Immature Gran # Absolute Neutrophils D-Dimer POC VBG pH POC VBG pCO2 at Temp POC VBG pO2 POC VBG HCO3 POC VBG Total CO2 POC Venous O2 Sat POC VBG Base Excess VBG Lactic Acid POC Sodium Sodium POC Potassium Potassium POC Chloride Chloride Carbon Dioxide POC Total CO2 Anion Gap POC BUN BUN Creatinine POC Creatinine GFR Calculation Glucose POC Glucose Uric Acid Calcium POC WB Ioniz Calcium Phosphorus Magnesium Total Bilirubin 1.0 Direct Bilirubin 0.4 H GGT AST 32 H ALT 21 Alkaline Phosphatase 64 Lactate Dehydrogenase C-Reactive Protein NT-Pro-B Natriuret Pep 2084.0 H Total Protein 7.0 Albumin 4.0 Globulin 3.0 Albumin/Globulin Ratio Triglycerides Procalcitonin 0.07 TSH 0.31 POC Troponin I 07/06/22 07/06/22 18:14 18:14 WBC 11.7 H RBC 3.63 Hgb 9.9 L Hct 31.1 L POC Hct MCV 85.7 MCH 27.3 MCHC 31.8 RDW 15.4 H Plt Count 169 MPV 12.3 Immature Gran % (Auto) 0.7 H Neut % (Auto) 82.6 H Lymph % (Auto) 5.9 L [place] % (Auto) 10.4 Eos % (Auto) 0.1 Baso % (Auto) 0.3 Lymph # (Auto) 0.69 L [place] # (Auto) 1.21 H Eos # (Auto) 0.01 Baso # (Auto) 0.04 Immature Gran # 0.08 H Absolute Neutrophils 9.65 H D-Dimer 1.74 H POC VBG pH POC VBG pCO2 at Temp POC VBG pO2 POC VBG HCO3 POC VBG Total CO2 POC Venous O2 Sat POC VBG Base Excess VBG Lactic Acid POC Sodium Sodium POC Potassium Potassium POC Chloride Chloride Carbon Dioxide POC Total CO2 Anion Gap POC BUN BUN Creatinine POC Creatinine GFR Calculation Glucose POC Glucose Uric Acid Calcium POC WB Ioniz Calcium Phosphorus Magnesium Total Bilirubin Direct Bilirubin GGT AST ALT Alkaline Phosphatase Lactate Dehydrogenase C-Reactive Protein NT-Pro-B Natriuret Pep Total Protein Albumin Globulin Albumin/Globulin Ratio Triglycerides Procalcitonin TSH POC Troponin I Discharge Plan Patient/Caregiver Discharge Instructions Activity: increase activity as tolerated Diet: Regular Diet Prescriptions: Continued verapamil 120 mg tablet extended release 120 mg PO QDAY Rx Instructions: total 360mg every day . Dr. Navas levothyroxine 150 mcg tablet 150 mcg PO QDAY Qty: 90 1RF sertraline 100 mg tablet 100 mg PO QDAY Qty: 90 1RF hydroxychloroquine [Plaquenil] 200 mg tablet 400 mg PO QDAY verapamil 240 mg capsule,ext rel. pellets 24 hr 240 mg PO QDAY Rx Instructions: in addition to 120mg to equal 360 Dr. Navas (DME) CPAP machine Qty: 1 Rx Instructions: As directed Orencia 125 mg/mL syringe 125 mg subcut QWEEK Rx Instructions: Dr. Pérez valacyclovir [Valtrex] 500 mg tablet 500 mg PO BID Qty: 30 1RF oxycodone 10 mg tablet 10 mg PO Q6H PRN (Reason: pain) Qty: 60 0RF lorazepam 1 mg tablet 1 mg PO BID PRN (Reason: Anxiety) Qty: 60 0RF potassium chloride 20 MEQ tablet 20 meq PO BIDCC magnesium oxide 250 MG tablet 250 mg PO BID furosemide 80 mg tablet 80 mg PO 2XD Follow Up Plan Follow up with: Asya Corbett ARNP [Primary Care Provider] - Patient Disposition: Home, Self-Care Prognosis: Fair Overall status at discharge: patient is progressing back to baseline Discharge Orders: Discharge Order (Routine); Ordered 07/08/22 Ordered By: Lam Allen [facility] Deep Vein Thrombosis/Pulmonary Embolism Present on Admission: No
[2022-07-07] MEDS ORDERED: LABETALOL 5 MG/ML ML IV PRN (10:55)
[2022-07-07] MEDS ORDERED: LORazepam 1 MG TABLET PO PRN (11:11)
[2022-07-07] MEDS ORDERED: oxyCODONE HCL 5 MG TABLET PO PRN (11:12)
[2022-07-07] MEDS: SERTRALINE 100 MG TABLET PO SCH (11:47)
[2022-07-07] MEDS: LEVOTHYROXINE 150 MCG TABLET PO SCH (11:47)
[2022-07-07] MEDS: REMDESIVIR 100 MG in 0.9 % SODIUM CHLORIDE 250 ML IV SCH (15:03)
[2022-07-07] MEDS: POTASSIUM CHLORIDE 20 MEQ TABLET PO SCH (16:57)
[2022-07-07] MEDS ORDERED: VERAPAMIL 120 MG TAB.XL.24H PO ONE (21:00)
[2022-07-08] MEDS: FUROSEMIDE 40 MG/4 ML VIAL IV SCH (05:20)
[2022-07-08] MEDS: 0.9 % SODIUM CHLORIDE 10 ML SYRINGE IV SCH (05:21)
--- NOTE | 2022-07-08 07:19 | Internal Med Progress Note ---
SUBJECTIVE Subjective Patient information: Note initiated : 07/08/22 at 7:18 am Service Date, if different from initiated Date: [] Patient: Bryanna Malone a 67 y/o F admitted on 07/06/22 for Shortness of breath. Chief Complaint: [] Interval history: History of present illness: Ms. Malone is a 67 year old F Presents to ED with shortness of breath and cough. Patient states she is felt weak for about a week. She she was up in [place] with her who was getting heart surgery about a week ago. She also around that time had a gradient change for pacemaker. Shortly thereafter she started having problems with some increased shortness of breath. She developed a cough with mildly productive sputum. She also had fevers about 3 days ago. She has felt wheezy at times. She had increased lower extremity edema but she said it started to improve today. She is at a 8 pound weight gain as well. She had a headache. She has some chronic chest pains sharp in the center and right side which has been there for years, no change. In the ED she was worked up and found to have CHF. She was given Lasix. She was also given Solu-Medrol and nebulizers as there was initial concern for COPD flare. She says she did feel improvement with the nebulizers. proBNP 1999. EKG with VTroponin was negative. Ventricular paced. She had an echocardiogram done May 21 up in [place] which showed good EF at 61%. She also had moderate to severe mitral regurgitation. Patient was hypoxic on room air and required oxygen. 07/07 patient feeling little better today. Shortness of breath present but better, coughing improving. On room air while awake. Have not ambulated on room air yet. COVID-positive possibly contributing to the presentation. CRP elevated 11. Patient started on treatment yesterday.Leukocytosis resolved 07/08 Continues to feel better. Ambulating around the room on room air. Decent urine output yesterday. CRP slightly improved. Patient hoping to discharge today. Review of Systems: Denies headachechills/nausea/vomiting/r abdominal pain/diarrhea.as above PHYSICAL EXAM General: Alert, Awake, No acute Distress, obese Eyes/N/T: EOMI, no scleral icterus, Head/Neck: neck supple, full ROM, CV: RRR, 2/6SM, Pulm: clearing b/l, no wheezing no respiratory distress Abd: soft, nontender, +BS x4 Ext: no clubbing/cyanosis, trace b/l LE , nontender Neuro: Alert, no focal deficits, moves all extremities,sensations intact b/l upper/lower Psychiatric: Skin: warm/dry, normal color Constitutional Vitals: Vital Signs Temp Pulse Resp BP Pulse Ox O2 Del Method O2 Flow Rate 96.8 F L 60 17 159/113 95 Room Air 0.5 07/08/22 04:01 07/08/22 06:00 07/08/22 06:00 07/08/22 06:00 07/08/22 06:00 07/08/22 06:00 07/07/22 16:00 Period Temp Pulse Resp BP Sys/Gunderson Pulse Ox O2 Del Method O2 Flow Rate Last 24 Hr 96.8 F-98.2 F 60-75 12-25 97-163/60-119 91-98 CPAP-Room Air, CPAP 0.5-0.5 Intake and Output 07/07/22 07/08/22 07/08/22 19:59 03:59 11:59 Intake Total 1690 480 Output Total 550 900 500 Balance 1140 -420 -500 Weight 89.675 kg Intake & Output: Intake & Output 07/07/22 07/08/22 07/08/22 19:59 03:59 11:59 Intake Total 1690 480 Output Total 550 900 500 Balance 1140 -420 -500 Weight 89.675 kg Intake: IV 250 Veklury 100 mg In Sodium 250 Chloride 0.9% 250 ml @ 500 mls/ hr IV Q24H [facility] Rx#:[id number] Oral 1440 480 Output: Void Amount 550 900 500 Other: Meal Lunch Percent of Meal Consumed 50% Urine Appearance Clear Clear Clear Urine Color Dark Yellow Light Lou Yellow Urine Odor Normal Normal Stool Size Moderate Small Stool Color Brown Brown Stool Consistency Formed Normal for Patient # Bowel Movements 1 OBJ DATA Labs 07/07/22 05:35 07/07/22 05:35 Labs: Abnormal Lab Results 07/07/22 07/07/22 07/07/22 05:35 05:35 05:35 WBC Hgb 10.2 L Hct 32.4 L POC Hct RDW 15.4 H Immature Gran % (Auto) 0.7 H Neut % (Auto) 89.9 H Lymph % (Auto) 5.0 L Lymph # (Auto) 0.42 L [place] # (Auto) Immature Gran # 0.06 H Absolute Neutrophils D-Dimer POC VBG pH POC VBG pCO2 at Temp POC VBG pO2 POC VBG HCO3 POC VBG Total CO2 POC Venous O2 Sat Glucose 155 H POC Glucose Uric Acid 8.5 H POC WB Ioniz Calcium Direct Bilirubin AST Lactate Dehydrogenase 401 H C-Reactive Protein 10.80 H NT-Pro-B Natriuret Pep 07/06/22 07/06/22 07/06/22 18:54 18:17 18:14 WBC Hgb Hct POC Hct 30.0 L RDW Immature Gran % (Auto) Neut % (Auto) Lymph % (Auto) Lymph # (Auto) [place] # (Auto) Immature Gran # Absolute Neutrophils D-Dimer POC VBG pH 7.47 H POC VBG pCO2 at Temp 29.1 L POC VBG pO2 45 H POC VBG HCO3 21.2 L POC VBG Total CO2 22.0 L POC Venous O2 Sat 85.0 H Glucose POC Glucose 125 H Uric Acid POC WB Ioniz Calcium 1.04 L Direct Bilirubin 0.4 H AST 32 H Lactate Dehydrogenase C-Reactive Protein NT-Pro-B Natriuret Pep 2084.0 H 07/06/22 07/06/22 18:14 18:14 WBC 11.7 H Hgb 9.9 L Hct 31.1 L POC Hct RDW 15.4 H Immature Gran % (Auto) 0.7 H Neut % (Auto) 82.6 H Lymph % (Auto) 5.9 L Lymph # (Auto) 0.69 L [place] # (Auto) 1.21 H Immature Gran # 0.08 H Absolute Neutrophils 9.65 H D-Dimer 1.74 H POC VBG pH POC VBG pCO2 at Temp POC VBG pO2 POC VBG HCO3 POC VBG Total CO2 POC Venous O2 Sat Glucose POC Glucose Uric Acid POC WB Ioniz Calcium Direct Bilirubin AST Lactate Dehydrogenase C-Reactive Protein NT-Pro-B Natriuret Pep Meds: Medications Acetaminophen (Acetaminophen 325 Mg Tablet) 650 mg PO Q6HP PRN; Protocol PRN Reason: Per Pain Protocol/Fever > 101 Albuterol/Ipratropium (Ipratropium/Albuterol 3 Ml Ampul.Neb) 3 ml NEB Q4HP PRN PRN Reason: Shortness Of Breath Last Admin: 07/07/22 09:03 Dose: 3 ml Budesonide (Budesonide 0.5 Mg/2 Ml Ampul.Neb) 0.5 mg NEB Q12 [facility] Last Admin: 07/07/22 20:08 Dose: 0.5 mg Dexamethasone (Dexamethasone 4 Mg Tablet) 6 mg PO DAILY [facility] Last Admin: 07/07/22 08:39 Dose: 6 mg Docusate Sodium (Docusate Sodium 100 Mg Capsule) 100 mg PO BID [facility] Last Admin: 07/07/22 19:13 Dose: Not Given Enoxaparin Sodium (Enoxaparin 40 Mg/0.4 Ml Syringe) 40 mg SQ DAILY [facility] Last Admin: 07/07/22 08:38 Dose: 40 mg Furosemide (Furosemide 40 Mg/4 Ml Vial) 40 mg IV Q8 [facility] Last Admin: 07/08/22 05:20 Dose: 40 mg Hydroxychloroquine Sulfate (Hydroxychloroquine 200 Mg Tablet) 400 mg PO QDAY [facility] Potassium Chloride 40 meq/ (Dextrose) 520 mls @ 130 mls/hr IV UD PRN PRN Reason: Potassium < 3 Magnesium Sulfate (Magnesium Sulfate) 2 gm in 50 mls @ 50 mls/hr IV UD PRN PRN Reason: Magnesium </= 1.6 REMDESIVIR 100 mg/ Sodium (Chloride) 250 mls @ 500 mls/hr IV Q24H [facility] Stop: 07/10/22 15:29 Last Infusion: 07/07/22 15:34 Dose: Infused Labetalol HCl (Labetalol 5 Mg/Ml Ml) 0 mg IV Q2HP PRN PRN Reason: Hypertension Levothyroxine Sodium (Levothyroxine 150 Mcg Tablet) 150 mcg PO QDAY [facility] Last Admin: 07/07/22 11:47 Dose: 150 mcg Lorazepam (Lorazepam 1 Mg Tablet) 1 mg PO BIDP PRN PRN Reason: Anxiety Ondansetron HCl (Ondansetron 4 Mg/2 Ml Vial) 4 mg IV Q4HP PRN PRN Reason: Nausea And Vomiting Oxycodone HCl (Oxycodone Hcl 5 Mg Tablet) 10 mg PO Q6HP PRN PRN Reason: Pain Polyethylene Glycol (Polyethylene Glycol 3350 17 Gm Packet) 17 gm PO DAILYP PRN PRN Reason: Constipation Potassium Chloride (Potassium Chloride 20 Meq Tablet) 40 meq PO UD PRN PRN Reason: Potssium is 3-3.5 Last Admin: 07/06/22 23:05 Dose: 40 meq Potassium Chloride (Potassium Chloride 20 Meq Tablet) 40 meq PO UD PRN PRN Reason: Potassium < 3 Potassium Chloride (Potassium Chloride 20 Meq Tablet) 20 meq PO BIDCC [facility] Last Admin: 07/07/22 16:57 Dose: 20 meq Senna (Sennosides 1 Tablet) 2 tab PO DAILYP PRN PRN Reason: Constipation Sertraline HCl (Sertraline 100 Mg Tablet) 100 mg PO QDAY [facility] Last Admin: 07/07/22 11:47 Dose: 100 mg Sodium Chloride (0.9 % Sodium Chloride 10 Ml Syringe) 10 ml IV Q8 [facility] Last Admin: 07/08/22 05:21 Dose: 10 ml Verapamil HCl (Verapamil 120 Mg Tab.Xl.24h) 120 mg PO DAILY [facility]ANNAN Verapamil HCl (Verapamil 120 Mg Tab.Xl.24h) 240 mg PO HS [facility]ANNA[facility] A/P Narrative A/P Narrative: A: *Acute on chronic diastolic CHF w/pulmonary edema: -last echo 05/21/2022 *mod-Severe MR: *Covid (+),?pna: -leukocytosis resolve. 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): 2/2 covid *LINA w/cpap: *HTN: *Obesity: BMI 34 *Chronic back pain: *Depression/anxiety: *Rheumatoid arthritis: *Hypothyroidism: tsh wnl P: -iv lasix tid to home regimen -Monitor UOP/renal function/fluid balance -montor renal fxn -Monitor electrolytes trend and replace -Rem/Dex -Check inflammatory markers -Continue home CPAP -nebs, IS/Acapella -PT/OT -f/u with cardiology -ppx: Lovenox Time Spent With Patient Time: Total time spent is greater than 50% in coordination of care (as documented) at patient's floor/unit and/or counseling patient: Subsequent: Total time with patient: 35 - 49 minutes [facility] Deep Vein Thrombosis/Pulmonary Embolism Present on Admission: No
[2022-07-08 07:52] LABS: ALT/SGPT 23 U/L (<40); AST/SGOT 30 U/L (<32); Albumin 3.9 gm/dL (3.2-5.2); Albumin/Globulin Ratio 1.1 (1.0-2.3); Alkaline Phosphatase 68 U/L (39-117); Bilirubin,Direct < 0.2 mg/dL (0-0.3); Bilirubin,Total 0.4 mg/dL (0.1-1.0); Blood Urea Nitrogen 22 mg/dL (8-23); Calcium 9.6 mg/dL (8.6-10.4); Carbon Dioxide 21 mmol/L (22-30); Chloride 106 mmol/L (96-108); Globulin 3.4 gm/dL (2.2-3.7); Glomerular Filtration Rate 90; Glucose 136 mg/dL (70-105); Lactate Dehydrogenase 385 U/L (135-225); Phosphorous 3.3 mg/dL (2.5-4.5); Triglycerides 105 mg/dL (<150); Uric Acid 8.4 mg/dL (2.5-8.0)
[2022-07-08] MEDS: BUDESONIDE 0.5 MG/2 ML AMPUL.NEB NEB SCH (08:11)
[2022-07-08] MEDS: IPRATROPIUM/ALBUTEROL 3 ML AMPUL.NEB NEB PRN (08:11)
[2022-07-08] MEDS ORDERED: [UNRECOGNIZED DRUG - OTHER] PO SCH (09:00)
[2022-07-08] MEDS ORDERED: VERAPAMIL 120 MG TAB.XL.24H PO SCH ×3 (09:00→21:00)
[2022-07-08] MEDS ORDERED: EXT REL PELLETS PO SCH (09:00)
[2022-07-08] MEDS ORDERED: HYDROXYCHLOROQUINE 200 MG TABLET PO SCH (09:00)
[2022-07-08] MEDS ORDERED: VERAPAMIL 240 MG PO SCH (09:00)
[2022-07-08] MEDS: SERTRALINE 100 MG TABLET PO SCH (09:56)
[2022-07-08] MEDS: LEVOTHYROXINE 150 MCG TABLET PO SCH (09:57)
[2022-07-08] MEDS: ENOXAPARIN 40 MG/0.4 ML SYRINGE SQ SCH (09:57)
[2022-07-08] MEDS: POTASSIUM CHLORIDE 20 MEQ TABLET PO SCH (09:57)
[2022-07-08] MEDS: DEXAMETHASONE 4 MG TABLET PO SCH (09:57)
[2022-07-08] MEDS: REMDESIVIR 100 MG in 0.9 % SODIUM CHLORIDE 250 ML IV SCH (09:57)
[2022-07-08] MEDS: DOCUSATE SODIUM 100 MG CAPSULE PO SCH (10:12)
== END 2022-07-08 12:05 | disposition home or self-care (01) | DRG 291 ==
LOC: ED 17:55 → ICU 22:00
PROVIDERS: ADMIT Internal Medicine; ATTEND Internal Medicine